=== PATIENT | male | born 1985 | race Caucasian/White ===

== ENCOUNTER 2019-06-01 07:48 | Emergency (ER) | payer OTHER ==
[2019-06-01] MEDS ORDERED: CEPHALEXIN 500 MG CAPSULE PO STA (08:08)
--- NOTE | 2019-06-01 08:27 | Emergency Department Record ---
History of Present Illness - General Chief Complaint: Laceration(s) Stated Complaint: LAC R THUMB/KNUCKLE Time Seen by Provider: 06/01/19 08:01 Source: Patient Mode of Arrival: Ambulatory Limitations: No limitations - History of Present Illness Initial Commments: The patient cut his R hand last night 12 hours ago while gutting a dear. He denies any numbness or tingling. His Td is UTD. Onset/Timin -: Hour(s) Place: Home Context: Accidental, Sharp object use - Devan Coma Scale Eye Response: (4) Open spontaneously Motor Response: (6) Obeys commands Verbal Response: (5) Oriented Devan Total: 15 - Related Data Hx Tetanus Toxoid Vaccination: Yes Previous Rx's Medication Instructions Recorded Cephalexin [Keflex] 500 mg PO QID #20 cap 06/01/19 Allergies Allergy/AdvReac Type Severity Reaction Status Date / Time No Known Drug Allergies Allergy Verified 08/14/17 21:48 Travel Screening - Travel/Exposure Within Last 30 Days Have you traveled within the last 30 days?: No - Travel/Exposure Within Last Year Have you traveled outside the [place] in the last year?: No - Additonal Travel Details Have you been exposed to anyone with a communicable illness?: No - Travel Symptoms Symptom Screening: None Review of Systems Constitutional: Denies: Chills, Fever Past Medical History - SOCIAL HISTORY Smoking Status: Current every day smoker Alcohol Use: Occasional Drug Use: None - RESPIRATORY Hx Respiratory Disorders: No - CARDIOVASCULAR Hx Cardio Disorders: No - NEURO Hx Neuro Disorders: No - GI Hx GI Disorders: No - Hx Genitourinary Disorders: No - ENDOCRINE Hx Endocrine Disorders: No - MUSCULOSKELETAL Hx Musculoskeletal Disorders: No - PSYCH Hx Psych Problems: No - HEMATOLOGY/ONCOLOGY Hx Hematology/Oncology Disorders: No Family Medical History Any Significant Family History?: No Hx HTN: Father, Grandparents Physical Exam - General General Appearance: Alert, Cooperative, No acute distress - Head Head exam: Atraumatic - Extremities Extremities exam: negative: Normal inspection (There is a 1 cm lac to the dorsal R hand over the 1st MCP joint. The R thumb is NVI with normal sensation and extensor tendon function.) Course Vital Signs 06/01/19 07:52 Temperature 98.2 F Pulse Rate 88 Respiratory 16 Rate Pulse Ox 99 - Reevaluation(s) Reevaluation #1: Procedure note: The R hand lac was anesth. with 1 cc Lido 1% with Epi. The wound was then prepped with betadine and explored and was down to but not into the tendon. The lac was then lavaged with sterile saline and left open due the age of the wound. The patient will return to the ER in 2 days for possible suturing if the wound is not infected. 06/01/19 08:24 Reevaluation #2: I did explain to the patient that due to the age of the hand wound I would not be able to suture it. It clearly is not infected but the standard of care is to suture in 2 days using a delayed primary closure technique. The patient understands and will comply. 06/01/19 08:29 Disposition Disposition: Discharge Clinical Impression: Laceration of hand Qualifiers: Encounter type: initial encounter Foreign body presence: without foreign body Laterality: right Qualified Code(s): S61.411A - Laceration without foreign body of right hand, initial encounter Disposition: Home, Self-Care Condition: (2) Stable Instructions: Laceration (ED) Additional Instructions: Keep clean and dry for 2 days and take the Keflex. Please return to the ER in 2 days for recheck and suturing if the wound is not infected. Prescriptions: Cephalexin [Keflex] 500 mg PO QID #20 cap Forms: Patient Portal Access Time of Disposition: 08:26 Quality - Quality Measures Quality Measures: N/A - Blood Pressure Screening View Details: Yes Does Patient Have Any of the Following: No Systolic Measurement: ~ Screening for High Blood Pressure: < First Hypertensive BP, F/U Documented > [[id number]] First Hypertensive Follow-up Interventions: Referral to alternative/primary care provider.
== END 2019-06-01 08:31 | disposition home or self-care (01) ==
LOC: ER 07:48
DX: S61.011A Laceration without foreign body of right thumb without damage to nail, initial encounter (principal); W26.0XXA Contact with knife, initial encounter; Y92.009 Unspecified place in unspecified non-institutional (private) residence as the place of occurrence of the external cause; F17.210 Nicotine dependence, cigarettes, uncomplicated
CPT/HCPCS: 99283